=== PATIENT | male | born 1935 | race African-American/Black ===

== ENCOUNTER 2016-10-16 17:53 | Emergency (ER) | payer MEDICARE ==
[~2016-10-16] VITALS: Ht 182.9 cm; Wt 76.0 kg
[~2016-10-16 17:53] MED LIST: AMLO10TA80 PO
[2016-10-16] MEDS ORDERED: IBUP-1509 PO (18:22)
[2016-10-16] MEDS ORDERED: HYDR12.529 PO (18:22)
[2016-10-16] MEDS ORDERED: ATOR10TA69 PO (18:22)
[2016-10-16] MEDS ORDERED: WARF4TAB39 PO (18:22)
[2016-10-16 20:52] LABS: CHLORIDE 103 mEq/L (98-107)
[2016-10-16 20:53] LABS: EOSINOPHILS % 5.9 % (0.0-5.0); HEMATOCRIT. 37.2 % (42.0-52.0); HEMOGLOBIN. 12.6 g/dL (14.0-18.0); LYMPHOCYTES % 38.2 % (20.0-50.0); MEAN CORPUSCULAR HEMOGLOBIN 30.7 pg (28.0-32.0); MEAN CORPUSCULAR VOLUME 90.6 fL (80.0-94.0); MEAN PLATELET VOLUME 8.9 fl (7.4-10.4); NEUTROPHILS % 44.9 % (40.0-76.0); PLATELET 128 x1000/uL (130-400); RED CELL DISTRIBUTION WIDTH 15.4 % (11.6-14.6)
[2016-10-16 20:54] LABS: INR 2.1; PARTIAL THROMBOPLASTIN TIME 37.7 sec (23.4-31.0); PROTHROMBIN TIME 21.6 sec (9.4-11.6)
[2016-10-16 20:55] LABS: CARBON DIOXIDE 28 mEq/L (21-32)
[2016-10-17 00:20] VITALS: BP 110/61
== END 2016-10-17 00:29 | disposition home or self-care (01) ==
LOC: ER 20:04
DX: R25.2 Cramp and spasm (principal); I10 Essential (primary) hypertension; Z86.73 Personal history of transient ischemic attack (TIA), and cerebral infarction without residual deficits; Z79.01 Long term (current) use of anticoagulants
CPT/HCPCS: 36415; 80053; 84443; 85025; 85610; 85730; 99284

== ENCOUNTER 2018-09-19 10:48 | Emergency (ER) | payer MEDICARE, MEDICAID ==
[~2018-09-19] VITALS: Ht 180.3 cm; Wt 82.0 kg
[~2018-09-19 10:48] MED LIST changes: +ATOR10TA69 PO; +HYDR12.529 PO; +IBUP-2028 PO; +WARF4TAB71 PO
[2018-09-19] MEDS ORDERED: SODIUM CHLORIDE 0.9% 1,000 ML IV ONE (13:25)
[2018-09-19 14:10] LABS: BASOPHILS % 1.3 % (0.0-2.0); EOSINOPHILS % 3.7 % (0.0-5.0); HEMATOCRIT. 36.6 % (42.0-52.0); LYMPHOCYTES % 36.1 % (20.0-50.0); MEAN CORPUSCULAR HEMOGLOBIN 31.2 pg (28.0-32.0); MEAN CORPUSCULAR VOLUME 94.6 fL (80.0-94.0); MEAN PLATELET VOLUME 9.7 fl (7.4-10.4); MONOCYTES % 8.4 % (2.0-8.0); NEUTROPHILS % 50.5 % (40.0-76.0); PLATELET 124 x1000/uL (130-400); RED BLOOD CELL COUNT 3.86 mill/uL (4.7-6.1); RED CELL DISTRIBUTION WIDTH 15.2 % (11.6-14.6)
[2018-09-19 14:11] LABS: CHLORIDE 112 mEq/L (98-107)
[2018-09-19 14:12] LABS: INR 1.1
[2018-09-19 15:31] LABS: CLARITY URINE CLEAR (CLEAR); COLOR URINE YELLOW (YELLOW); KETONES URINE NEGATIVE (NEGATIVE); LEUKOCYTE ESTERASE URINE NEGATIVE (NEGATIVE); NITRITE URINE NEGATIVE (NEGATIVE); OCCULT BLOOD URINE NEGATIVE (NEGATIVE); PH URINE 5.5 (4.5-8.0); PROTEIN URINE 1+ (NEGATIVE); SPECIFIC GRAVITY URINE 1.025 (1.005-1.030); UROBILINOGEN URINE 0.2 E.U./dL (0.2-1.0)
[2018-09-19] MEDS ORDERED: AMLODIPINE 5MG TABLET PO ONE (16:15)
[2018-09-19] MEDS ORDERED: AMLODIPINE 5MG TABLET PO NR (18:45)
[2018-09-19] MEDS ORDERED: HYDRALAZINE 20MG/ML VIAL IV ONE (20:45)
[2018-09-19 21:00] VITALS: BP 143/86
== END 2018-09-19 21:30 | disposition short-term general hospital (02) ==
LOC: ER 10:48 → CANBEDREQ 17:11 → ER 21:30
DX: I10 Essential (primary) hypertension (principal); G93.49 Other encephalopathy; E86.0 Dehydration; N28.9 Disorder of kidney and ureter, unspecified; Z86.73 Personal history of transient ischemic attack (TIA), and cerebral infarction without residual deficits; Z79.01 Long term (current) use of anticoagulants
CPT/HCPCS: 36415; 70450; 71045; 80053; 81003; 85025; 85610; 93005; 96361; 96374; 99291; J0360; J7030

== ENCOUNTER 2018-09-22 08:35 | Inpatient (IN) | payer MEDICARE, MEDICAID ==
[~2018-09-22] VITALS: Ht 182.9 cm; Wt 68.5 kg
[2018-09-22 09:59] LABS: BASOPHILS % 1.2 % (0.0-2.0); EOSINOPHILS % 4.6 % (0.0-5.0); HEMATOCRIT. 37.8 % (42.0-52.0); HEMOGLOBIN. 12.9 g/dL (14.0-18.0); LYMPHOCYTES % 34.3 % (20.0-50.0); MEAN CORPUSCULAR VOLUME 93.5 fL (80.0-94.0); MEAN PLATELET VOLUME 9.6 fl (7.4-10.4); MONOCYTES % 10.2 % (2.0-8.0); NEUTROPHILS % 49.7 % (40.0-76.0); PLATELET 112 x1000/uL (130-400); RED BLOOD CELL COUNT 4.05 mill/uL (4.7-6.1); RED CELL DISTRIBUTION WIDTH 14.9 % (11.6-14.6)
[2018-09-22 10:02] LABS: CHLORIDE 108 mEq/L (98-107)
[2018-09-22 10:04] LABS: INR 1.1; PARTIAL THROMBOPLASTIN TIME 29.2 sec (23.4-31.0); PROTHROMBIN TIME 11.1 sec (9.6-11.0)
[2018-09-22] MEDS ORDERED: ACETAMINOPHEN 325MG TABLET PO PRN (12:15)
[2018-09-22] MEDS ORDERED: ONDANSETRON HCL 4MG/2ML INJ IV PRN (12:15)
[2018-09-22 13:22] VITALS: BP_SYST 122; BP_SYST 145; BP_SYST 147; BP_DIAS 70; BP_DIAS 90
[2018-09-22] MEDS ORDERED: SODIUM CHLORIDE 0.9% 1,000 ML IV SCH (13:45)
[2018-09-22] MEDS: ENOXAPARIN 30MG/0.3ML SYR SUBCUT SCH (15:16)
[2018-09-22 16:00] VITALS: BP 143/93
[2018-09-22] MEDS: ATORVASTATIN CALCIUM 40MG TABLET PO SCH (20:30)
[2018-09-22 20:46] VITALS: BP 148/98
[2018-09-23] VITALS (7 sets, daily range): BP systolic 102–173; BP diastolic 72–95
[2018-09-23] MEDS: CLONIDINE 0.1MG TABLET PO PRN ×2 (03:23→09:37)
[2018-09-23] MEDS: LORAZEPAM 2MG/ML CPJ IV PRN (03:23)
[2018-09-23] MEDS ORDERED: QUETIAPINE FUMARATE 25MG TABLET PO SCH (09:00)
[2018-09-23 09:09] LABS: BASOPHILS % 1.1 % (0.0-2.0); EOSINOPHILS % 5.4 % (0.0-5.0); HEMATOCRIT. 37.2 % (42.0-52.0); HEMOGLOBIN. 12.6 g/dL (14.0-18.0); LYMPHOCYTES % 39.1 % (20.0-50.0); MEAN CORPUSCULAR HEMOGLOBIN 31.5 pg (28.0-32.0); MEAN CORPUSCULAR VOLUME 93.4 fL (80.0-94.0); MEAN PLATELET VOLUME 9.4 fl (7.4-10.4); NEUTROPHILS % 40.4 % (40.0-76.0); PLATELET 104 x1000/uL (130-400); RED BLOOD CELL COUNT 3.99 mill/uL (4.7-6.1); RED CELL DISTRIBUTION WIDTH 14.5 % (11.6-14.6)
[2018-09-23] MEDS: CLOPIDOGREL 75MG TABLET PO SCH (09:37)
[2018-09-23] MEDS: QUETIAPINE FUMARATE 25MG TABLET PO SCH ×2 (09:38→20:33)
[2018-09-23] MEDS: ENOXAPARIN 30MG/0.3ML SYR SUBCUT SCH (15:02)
[2018-09-23 15:55] LABS: ETHANOL BLOOD < 10 mg/dL
[2018-09-23 16:01] LABS: T4 FREE 0.85 ng/dL (0.76-1.46)
[2018-09-23 16:11] LABS: FOLIC ACID (FOLATE) SERUM 11.1 ng/mL (>5.38)
[2018-09-23] MEDS: ATORVASTATIN CALCIUM 40MG TABLET PO SCH (20:33)
[2018-09-23 22:26] LABS: CLARITY URINE CLEAR (CLEAR); COLOR URINE YELLOW (YELLOW); KETONES URINE NEGATIVE (NEGATIVE); LEUKOCYTE ESTERASE URINE NEGATIVE (NEGATIVE); NITRITE URINE NEGATIVE (NEGATIVE); OCCULT BLOOD URINE NEGATIVE (NEGATIVE); PROTEIN URINE NEGATIVE (NEGATIVE); SPECIFIC GRAVITY URINE 1.019 (1.005-1.030); UROBILINOGEN URINE 0.2 E.U./dL (0.2-1.0)
[2018-09-23 22:50] LABS: *AMPHETAMINES SCREEN URINE NEGATIVE (NEGATIVE); *BARBITURATES SCREEN URINE NEGATIVE (NEGATIVE); *BENZODIAZEPINES SCREEN URINE NEGATIVE (NEGATIVE); *COCAINE SCREEN URINE NEGATIVE (NEGATIVE); CANNABINOID URINE SCREEN NEGATIVE (NEGATIVE)
[2018-09-23 22:51] LABS: METHADONE URINE SCREEN NEGATIVE (NEGATIVE); OPIATES URINE SCREEN NEGATIVE (NEGATIVE); PHENCYCLIDINE URINE SCREEN NEGATIVE (NEGATIVE)
[2018-09-24] MEDS: CLONIDINE 0.1MG TABLET PO PRN (00:04)
[2018-09-24 00:26] VITALS: BP 168/102
[2018-09-24 04:00] VITALS: BP 142/92
[2018-09-24 06:30] LABS: BASOPHILS % 1.4 % (0.0-2.0); EOSINOPHILS % 7.1 % (0.0-5.0); HEMATOCRIT. 34.6 % (42.0-52.0); MEAN CORPUSCULAR VOLUME 92.4 fL (80.0-94.0); MEAN PLATELET VOLUME 9.7 fl (7.4-10.4); MONOCYTES % 12.1 % (2.0-8.0); NEUTROPHILS % 26.4 % (40.0-76.0); PLATELET 108 x1000/uL (130-400); RED BLOOD CELL COUNT 3.74 mill/uL (4.7-6.1); RED CELL DISTRIBUTION WIDTH 14.2 % (11.6-14.6)
[2018-09-24 08:00] VITALS: BP 149/98
[2018-09-24] MEDS: QUETIAPINE FUMARATE 25MG TABLET PO SCH ×2 (08:59→21:14)
[2018-09-24] MEDS: CLOPIDOGREL 75MG TABLET PO SCH (08:59)
[2018-09-24 12:00] VITALS: BP 102/63
[2018-09-24] MEDS: ENOXAPARIN 30MG/0.3ML SYR SUBCUT SCH (13:37)
[2018-09-24 16:00] VITALS: BP 122/74
[2018-09-24] MEDS: LORAZEPAM 2MG/ML CPJ IV PRN ×2 (16:56→21:14)
[2018-09-24 20:00] VITALS: BP 155/91
[2018-09-24] MEDS: ATORVASTATIN CALCIUM 40MG TABLET PO SCH (21:14)
[2018-09-25 00:10] VITALS: BP 168/98
[2018-09-25] MEDS: CLONIDINE 0.1MG TABLET PO PRN ×2 (00:42→09:34)
[2018-09-25 08:32] VITALS: BP 175/105
[2018-09-25] MEDS: QUETIAPINE FUMARATE 25MG TABLET PO SCH ×2 (09:33→21:19)
[2018-09-25] MEDS: CLOPIDOGREL 75MG TABLET PO SCH (09:33)
[2018-09-25 12:34] VITALS: BP 123/83
[2018-09-25 16:00] VITALS: BP 115/79
[2018-09-25] MEDS: ENOXAPARIN 30MG/0.3ML SYR SUBCUT SCH (16:22)
[2018-09-25 21:00] VITALS: BP 136/80
[2018-09-25] MEDS: ATORVASTATIN CALCIUM 40MG TABLET PO SCH (21:19)
[2018-09-26] VITALS (10 sets, daily range): BP systolic 100–192; BP diastolic 63–101
[2018-09-26] MEDS: CLONIDINE 0.1MG TABLET PO PRN ×2 (06:55→17:36)
[2018-09-26] MEDS: CLOPIDOGREL 75MG TABLET PO SCH (08:46)
[2018-09-26] MEDS: QUETIAPINE FUMARATE 25MG TABLET PO SCH ×2 (08:46→21:08)
[2018-09-26] MEDS: ENOXAPARIN 30MG/0.3ML SYR SUBCUT SCH (14:00)
[2018-09-26] MEDS ORDERED: HYDRALAZINE 20MG/ML VIAL IV NR (20:45)
[2018-09-26] MEDS ORDERED: AMLODIPINE 10MG TABLET PO SCH (21:00)
[2018-09-26] MEDS: ATORVASTATIN CALCIUM 40MG TABLET PO SCH (21:07)
[2018-09-27] MEDS ORDERED: AMLODIPINE 10MG TABLET PO SCH (09:00)
== END 2018-09-26 22:36 | DRG 682 ==
LOC: ER 08:35 → 6WST 10:30 → EDBEDREQ 10:38 → EDBEDREQSVC 10:38 → EDBEDREQTM 10:38 → ENRESERV 11:48
PROVIDERS: ADMIT Internal Medicine Nephrology; ATTEND Internal Medicine Nephrology
DX: N17.9 Acute kidney failure, unspecified (principal); G92 Toxic encephalopathy; E44.1 Mild protein-calorie malnutrition; F03.90 Unspecified dementia, unspecified severity, without behavioral disturbance, psychotic disturbance, mood disturbance, and anxiety; G90.8 Other disorders of autonomic nervous system; N18.9 Chronic kidney disease, unspecified; E87.8 Other disorders of electrolyte and fluid balance, not elsewhere classified; I48.0 Paroxysmal atrial fibrillation; I12.9 Hypertensive chronic kidney disease with stage 1 through stage 4 chronic kidney disease, or unspecified chronic kidney disease; D70.9 Neutropenia, unspecified; E78.00 Pure hypercholesterolemia, unspecified; Z91.19 Patient's noncompliance with other medical treatment and regimen; Z86.73 Personal history of transient ischemic attack (TIA), and cerebral infarction without residual deficits; Z68.20 Body mass index [BMI] 20.0-20.9, adult
CPT/HCPCS: 36415; 70551; 71045; 80048; 80061; 80305; 80320; 82140; 82607; 82746; 83036; 83880; 84439; 84443; 84481; 84484; 93005; 93970; 96372; 97162; 99285; J0360; J1650; G0480

== ENCOUNTER 2020-04-13 21:49 | Inpatient (IN) | payer MEDICARE, MEDICAID ==
[~2020-04-13] VITALS: Ht 182.9 cm; Wt 79.8 kg
[2020-04-13] MEDS ORDERED: SODIUM CHLORIDE 0.9% 1,000 ML IV ONE (23:30)
[2020-04-13] MEDS ORDERED: LORAZEPAM 2MG/ML CPJ IV ONE (23:30)
[2020-04-14 00:11] LABS: BASOPHILS % 0.4 % (0.0-2.0); EOSINOPHILS % 1.9 % (0.0-5.0); HEMATOCRIT. 37.8 % (42.0-52.0); HEMOGLOBIN. 12.4 g/dL (14.0-18.0); LYMPHOCYTES % 17.2 % (20.0-50.0); MEAN CORPUSCULAR HEMOGLOBIN 30.1 pg (28.0-32.0); MEAN CORPUSCULAR VOLUME 91.8 fL (80.0-94.0); MEAN PLATELET VOLUME 8.3 fl (7.4-10.4); MONOCYTES % 7.6 % (2.0-8.0); NEUTROPHILS % 72.9 % (40.0-76.0); PLATELET 177 x1000/uL (130-400); RED BLOOD CELL COUNT 4.12 mill/uL (4.7-6.1); RED CELL DISTRIBUTION WIDTH 15.3 % (11.6-14.6)
[2020-04-14 00:19] LABS: INR 1.1; PARTIAL THROMBOPLASTIN TIME 27.9 sec (23.4-31.0); PROTHROMBIN TIME 11.1 sec (9.6-11.0)
[2020-04-14 00:29] LABS: CHLORIDE 109 mEq/L (98-107)
[2020-04-14 00:32] LABS: ETHANOL BLOOD < 10 mg/dL
[2020-04-14] MEDS ORDERED: ASPIRIN 325MG EC TABLET PO ONE (01:30)
[2020-04-14 03:55] LABS: CLARITY URINE CLEAR (CLEAR); COLOR URINE YELLOW (YELLOW); KETONES URINE TRACE (NEGATIVE); LEUKOCYTE ESTERASE URINE NEGATIVE (NEGATIVE); NITRITE URINE NEGATIVE (NEGATIVE); OCCULT BLOOD URINE NEGATIVE (NEGATIVE); PH URINE 5.5 (4.5-8.0); PROTEIN URINE 1+ (NEGATIVE); SPECIFIC GRAVITY URINE 1.024 (1.005-1.030); UROBILINOGEN URINE 0.2 E.U./dL (0.2-1.0)
[2020-04-14 04:08] LABS: *COCAINE SCREEN URINE NEGATIVE (NEGATIVE); METHADONE URINE SCREEN NEGATIVE (NEGATIVE)
[2020-04-14 04:10] LABS: *AMPHETAMINES SCREEN URINE NEGATIVE (NEGATIVE); *BARBITURATES SCREEN URINE NEGATIVE (NEGATIVE); *BENZODIAZEPINES SCREEN URINE NEGATIVE (NEGATIVE); CANNABINOID URINE SCREEN NEGATIVE (NEGATIVE); OPIATES URINE SCREEN NEGATIVE (NEGATIVE); PHENCYCLIDINE URINE SCREEN NEGATIVE (NEGATIVE)
[2020-04-14 08:00] VITALS: BP 133/70
[2020-04-14 10:44] VITALS: BP 133/70
[2020-04-14] MEDS ORDERED: ONDANSETRON HCL 4MG/2ML INJ IV PRN (10:45)
[2020-04-14 12:00] VITALS: BP 143/82
[2020-04-14] MEDS: SODIUM CHLORIDE 0.45% 1,000 ML IV SCH (12:16)
[2020-04-14] MEDS ORDERED: PNEUMOCOCCAL 23-VAL P-SAC VAC 0.5 ML IM ONE (13:30)
[2020-04-14 16:00] VITALS: BP 136/87
[2020-04-14 20:00] VITALS: BP 149/86
[2020-04-15] VITALS: BP 128/93
[2020-04-15] MEDS: SODIUM CHLORIDE 0.45% 1,000 ML IV SCH ×3 (00:05→23:47)
[2020-04-15 08:00] VITALS: BP 140/89
[2020-04-15 08:17] LABS: BASOPHILS % 0.6 % (0.0-2.0); EOSINOPHILS % 1.6 % (0.0-5.0); HEMATOCRIT. 38.5 % (42.0-52.0); HEMOGLOBIN. 12.6 g/dL (14.0-18.0); LYMPHOCYTES % 15.2 % (20.0-50.0); MEAN CORPUSCULAR HEMOGLOBIN 29.9 pg (28.0-32.0); MEAN CORPUSCULAR VOLUME 91.1 fL (80.0-94.0); MEAN PLATELET VOLUME 8.9 fl (7.4-10.4); MONOCYTES % 10.8 % (2.0-8.0); NEUTROPHILS % 71.8 % (40.0-76.0); PLATELET 157 x1000/uL (130-400); RED BLOOD CELL COUNT 4.23 mill/uL (4.7-6.1); RED CELL DISTRIBUTION WIDTH 14.9 % (11.6-14.6)
[2020-04-15 08:37] LABS: CHLORIDE 105 mEq/L (98-107)
[2020-04-15] MEDS: ACETAMINOPHEN 325MG TABLET PO PRN ×2 (09:22→17:51)
[2020-04-15 12:00] VITALS: BP 135/84
[2020-04-15 16:00] VITALS: BP 140/81
[2020-04-15 20:00] VITALS: BP 117/87
[2020-04-16] VITALS: BP 135/69
[2020-04-16 04:00] VITALS: BP 114/60
[2020-04-16 08:00] VITALS: BP 158/90
[2020-04-16 12:00] VITALS: BP 126/87
[2020-04-16 16:00] VITALS: BP 113/71
[2020-04-16] MEDS: SODIUM CHLORIDE 0.45% 1,000 ML IV SCH (16:58)
[2020-04-16 20:00] VITALS: BP 116/66
[2020-04-16] MEDS: ACETAMINOPHEN 325MG TABLET PO PRN (23:54)
[2020-04-17] VITALS: BP 139/82
[2020-04-17 04:00] VITALS: BP 126/84
[2020-04-17] MEDS: SODIUM CHLORIDE 0.45% 1,000 ML IV SCH ×2 (05:58→18:31)
[2020-04-17 08:00] VITALS: BP 115/79
[2020-04-17 12:00] VITALS: BP 110/67
[2020-04-17] MEDS ORDERED: LACTULOSE 20G/30ML UDC PO PRN (15:00)
[2020-04-17] MEDS: DOCUSATE SODIUM 250MG CAPSULE PO SCH (15:15)
[2020-04-17 16:00] VITALS: BP 116/82
[2020-04-17 17:58] LABS: BASOPHILS % 0.3 % (0.0-2.0); EOSINOPHILS % 0.6 % (0.0-5.0); HEMATOCRIT. 35.4 % (42.0-52.0); HEMOGLOBIN. 11.6 g/dL (14.0-18.0); LYMPHOCYTES % 11.5 % (20.0-50.0); MEAN CORPUSCULAR HEMOGLOBIN 30.1 pg (28.0-32.0); MEAN PLATELET VOLUME 8.8 fl (7.4-10.4); MONOCYTES % 14.8 % (2.0-8.0); NEUTROPHILS % 72.8 % (40.0-76.0); PLATELET 138 x1000/uL (130-400); RED BLOOD CELL COUNT 3.84 mill/uL (4.7-6.1); RED CELL DISTRIBUTION WIDTH 15.1 % (11.6-14.6)
[2020-04-17 18:42] LABS: CHLORIDE 105 mEq/L (98-107)
[2020-04-17 20:00] VITALS: BP 117/79
[2020-04-17] MEDS: CEFEPIME 1,000 MG in DEXTROSE 5% WATER 50 ML IV SCH (23:57)
[2020-04-18] VITALS (7 sets, daily range): BP systolic 121–138; BP diastolic 60–85
[2020-04-18] MEDS: SODIUM CHLORIDE 0.45% 1,000 ML IV SCH ×2 (08:05→21:34)
[2020-04-18] MEDS: DOCUSATE SODIUM 250MG CAPSULE PO SCH (09:55)
[2020-04-18 19:20] LABS: CLARITY URINE CLEAR (CLEAR); COLOR URINE YELLOW (YELLOW); KETONES URINE TRACE (NEGATIVE); LEUKOCYTE ESTERASE URINE NEGATIVE (NEGATIVE); NITRITE URINE NEGATIVE (NEGATIVE); OCCULT BLOOD URINE TRACE (NEGATIVE); PROTEIN URINE 1+ (NEGATIVE); SPECIFIC GRAVITY URINE 1.023 (1.005-1.030)
[2020-04-18] MEDS: CEFEPIME 1,000 MG in DEXTROSE 5% WATER 50 ML IV SCH (21:33)
[2020-04-19] VITALS: BP 137/71
[2020-04-19 04:00] VITALS: BP 147/73
[2020-04-19 08:00] VITALS: BP 132/74
[2020-04-19] MEDS: DOCUSATE SODIUM 250MG CAPSULE PO SCH (10:04)
[2020-04-19] MEDS: ACETAMINOPHEN 325MG TABLET PO PRN (10:04)
[2020-04-19 10:50] VITALS: BP 102/66
[2020-04-19 12:00] VITALS: BP 114/59
[2020-04-19] MEDS: SODIUM CHLORIDE 0.45% 1,000 ML IV SCH (12:32)
[2020-04-19 16:00] VITALS: BP 150/78
[2020-04-19] MEDS: CEFEPIME 1,000 MG in DEXTROSE 5% WATER 50 ML IV SCH (21:35)
[2020-04-20] MEDS: SODIUM CHLORIDE 0.45% 1,000 ML IV SCH ×2 (00:05→16:46)
[2020-04-20 08:00] VITALS: BP 130/58
[2020-04-20] MEDS: DOCUSATE SODIUM 250MG CAPSULE PO SCH (08:18)
[2020-04-20 08:23] LABS: HEMATOCRIT. 36.2 % (42.0-52.0); HEMOGLOBIN. 12.3 g/dL (14.0-18.0); MEAN CORPUSCULAR VOLUME 90.9 fL (80.0-94.0); MEAN PLATELET VOLUME 8.8 fl (7.4-10.4); PLATELET 190 x1000/uL (130-400); RED BLOOD CELL COUNT 3.98 mill/uL (4.7-6.1); RED CELL DISTRIBUTION WIDTH 14.8 % (11.6-14.6)
[2020-04-20 08:28] LABS: CHLORIDE 101 mEq/L (98-107)
[2020-04-20 12:00] VITALS: BP 124/76
[2020-04-20 16:00] VITALS: BP 111/87
[2020-04-20] MEDS: ENOXAPARIN 80MG/0.8ML SYR SUBCUT SCH (17:31)
[2020-04-20 20:00] VITALS: BP 106/74
[2020-04-20 22:52] LABS: PLATELET ESTIMATE NORMAL
[2020-04-20] MEDS: CEFEPIME 1,000 MG in DEXTROSE 5% WATER 50 ML IV SCH (22:58)
[2020-04-21] VITALS: BP 150/101
[2020-04-21] MEDS: SODIUM CHLORIDE 0.45% 1,000 ML IV SCH ×2 (02:55→17:28)
[2020-04-21 04:00] VITALS: BP 148/92
[2020-04-21] MEDS: ACETAMINOPHEN 325MG TABLET PO PRN (05:15)
[2020-04-21] MEDS: ENOXAPARIN 80MG/0.8ML SYR SUBCUT SCH ×3 (05:18→17:28)
[2020-04-21] MEDS ORDERED: LORAZEPAM 2MG/ML CPJ IV PRN (06:15)
[2020-04-21 08:00] VITALS: BP 127/77
[2020-04-21 08:47] LABS: HEMOGLOBIN. 12.4 g/dL (14.0-18.0); MEAN CORPUSCULAR HEMOGLOBIN 30.3 pg (28.0-32.0); MEAN CORPUSCULAR VOLUME 90.5 fL (80.0-94.0); MEAN PLATELET VOLUME 8.3 fl (7.4-10.4); PLATELET 226 x1000/uL (130-400); RED BLOOD CELL COUNT 4.09 mill/uL (4.7-6.1); RED CELL DISTRIBUTION WIDTH 15.1 % (11.6-14.6)
[2020-04-21 08:48] LABS: INR 1.1; PROTHROMBIN TIME 11.9 sec (9.6-11.0)
[2020-04-21 09:19] LABS: CHLORIDE 104 mEq/L (98-107)
[2020-04-21] MEDS: DOCUSATE SODIUM 250MG CAPSULE PO SCH (09:25)
[2020-04-21 12:00] VITALS: BP 125/81
[2020-04-21] MEDS: DILTIAZEM HCL 30MG TABLET PO SCH ×3 (12:53→23:06)
[2020-04-21 16:00] VITALS: BP 130/71
[2020-04-21 22:33] VITALS: BP 118/82
[2020-04-21] MEDS: CEFEPIME 1,000 MG in DEXTROSE 5% WATER 50 ML IV SCH (22:50)
[2020-04-21 23:18] LABS: PLATELET ESTIMATE NORMAL
[2020-04-22] VITALS: BP 121/84
[2020-04-22] MEDS: DILTIAZEM HCL 30MG TABLET PO SCH (05:15)
[2020-04-22] MEDS: SODIUM CHLORIDE 0.45% 1,000 ML IV SCH (05:16)
[2020-04-22] MEDS: ENOXAPARIN 80MG/0.8ML SYR SUBCUT SCH (05:16)
[2020-04-22 05:32] VITALS: BP 126/88
[2020-04-22 08:00] VITALS: BP 124/77
[2020-04-22] MEDS: DOCUSATE SODIUM 250MG CAPSULE PO SCH (09:14)
[2020-04-22 12:00] VITALS: BP 118/83
[2020-04-22] MEDS ORDERED: DILTIAZEM HCL 30MG TABLET PO SCH (12:00)
[2020-04-22 13:44] LABS: HEMATOCRIT. 37.3 % (42.0-52.0); HEMOGLOBIN. 12.7 g/dL (14.0-18.0); MEAN CORPUSCULAR HEMOGLOBIN 31.2 pg (28.0-32.0); MEAN CORPUSCULAR VOLUME 91.9 fL (80.0-94.0); MEAN PLATELET VOLUME 8.3 fl (7.4-10.4); PLATELET 231 x1000/uL (130-400); RED BLOOD CELL COUNT 4.06 mill/uL (4.7-6.1)
[2020-04-22 14:20] LABS: CHLORIDE 104 mEq/L (98-107)
[2020-04-22 14:27] LABS: PLATELET ESTIMATE NORMAL
[2020-04-22 15:57] VITALS: BP 122/80
[2020-04-22 16:00] VITALS: BP 116/72
[2020-04-25 20:00] VITALS: BP 99/52
== END 2020-04-22 17:00 | DRG 70 ==
LOC: ER 21:49 → 8WST 04-14 00:56 → ENRESERV 04-14 08:17 → 8WST 04-14 21:53
PROVIDERS: ADMIT Internal Medicine Nephrology; ATTEND Internal Medicine Nephrology
DX: G93.41 Metabolic encephalopathy (principal); A41.9 Sepsis, unspecified organism; N17.0 Acute kidney failure with tubular necrosis; N39.0 Urinary tract infection, site not specified; M25.512 Pain in left shoulder; R41.0 Disorientation, unspecified; F03.90 Unspecified dementia, unspecified severity, without behavioral disturbance, psychotic disturbance, mood disturbance, and anxiety; E87.8 Other disorders of electrolyte and fluid balance, not elsewhere classified; E78.5 Hyperlipidemia, unspecified; I10 Essential (primary) hypertension; I27.81 Cor pulmonale (chronic); I48.0 Paroxysmal atrial fibrillation; Z20.822 Contact with and (suspected) exposure to COVID-19; Z87.891 Personal history of nicotine dependence; Z86.73 Personal history of transient ischemic attack (TIA), and cerebral infarction without residual deficits; Z79.01 Long term (current) use of anticoagulants; Z79.899 Other long term (current) drug therapy; D63.8 Anemia in other chronic diseases classified elsewhere
CPT/HCPCS: 36415; 71045; 73030; 80048; 80053; 80061; 80305; 80320; 81003; 82140; 83735; 83880; 84145; 84484; 85025; 87426; 90732; 93005; 93306; 96374; 97110; 97162; 97530; 99285; C1893; J0692; J1650; J2060; J7030; J7060; G0480